=== PATIENT | female | born 1955 | race African-American/Black ===

== ENCOUNTER 2017-02-20 09:27 | Day surgery (SDC) | payer OTHER ==
[~2017-02-20] VITALS: Ht 152.4 cm; Wt 66.5 kg
[2017-02-20 10:14] VITALS: Ht 152.4 cm; Wt 66.5 kg
[2017-02-20 10:37] VITALS: BP 136/85; PULSE 65; RESP 18
--- NOTE | 2017-02-20 11:30 | OPPN ---
Date/Time of Note Date/Time of Note DATE: 02/20/17 TIME: 11:28 Operative Report Preoperative Diagnosis Screening Postoperative Diagnosis Small cecal polyp was removed Diverticulosis of the colon Internal hemorrhoids Operation/Procedure Performed Colonoscopy and biopsy Surgeon see signature line office assistant receptionist None Anesthesia: moderate sedation Estimated blood loss: none Transfusion Required none Specimen Colon polyp Grafts/Implants none Complications none MARCIAL BIRMINGHAM MD Feb 20, 2017 11:30
[2017-02-20] MEDS ORDERED: MIDAZOLAM 1 MG/ML 2 ML INJ ONE ×2 (11:35)
[2017-02-20] MEDS ORDERED: FENTAnyl 50 MCG/ML VIAL ONE (11:36)
[2017-02-20 11:51] VITALS: BP 141/79; PULSE 50; RESP 14
--- NOTE | 2017-02-21 09:24 | GILP ---
DATE OF PROCEDURE: NAME OF PROCEDURES: Colonoscopy and biopsy. SURGEON: Bea Sanchez MD PREOPERATIVE DIAGNOSIS: Screening colonoscopy. POSTOPERATIVE DIAGNOSES: 1. Colonoscopy all the way to the cecum. 2. Small cecal polyp was removed. 3. Mild diverticulosis of the colon. 4. Small internal hemorrhoids. INDICATION FOR THE PROCEDURE: Ms. Rosalie Centeno is a 61-year-old female patient who was jose cruz eduled for screening colonoscopy. The procedure and possible complications are well explained to the patient. She understood and cons ented to the procedure. DESCRIPTION OF PROCEDURE: Under the influence of fentanyl and Versed, the colonoscope was carefully introduced in the rectum and under direct vision, it was advanced all the way to the cecum. FINDINGS: The patient had a small cecal polyp and it was removed using the biopsy forceps. She had diverticulosis of the colon and internal hemorrhoids. She tolerated the procedure very well and there was no complication from the procedure. At the end of the procedures, she was awake with stable vital signs and she was discharged home to the care of her family. IMPRESSION: Please see postoperative diagnoses. PLAN: 1. High fiber diet. 2. Next screening colonoscopy in 10 years. Dictated By: BEA HADDAD/YAS Conf#: [id number] DID#: [id number]
== END 2017-02-20 13:50 | disposition home or self-care (01) ==
LOC: GIL 09:27
PROVIDERS: ATTEND Internal Medicine Gastroenterology
DX: K63.5 Polyp of colon (principal); K57.30 Diverticulosis of large intestine without perforation or abscess without bleeding; K64.8 Other hemorrhoids
CPT/HCPCS: 45380; 88305; J2250; J3010; Z7610